=== PATIENT | female | born 1995 | race Caucasian/White ===

== ENCOUNTER 2023-04-28 23:20 | Emergency (ER) | payer OTHER ==
[~2023-04-28] VITALS: Ht 167.6 cm; Wt 69.0 kg
[2023-04-28 23:33] VITALS: BP 126/75; O2SAT 98
[2023-04-29] MEDS ORDERED: IBUPROFEN 600MG TABLET PO ONE (03:30)
[2023-04-29] MEDS ORDERED: IBUP-2029 MT (05:09)
[2023-04-29 07:10] VITALS: PULSE 77; RESP 16; TEMP 98.7
== END 2023-04-29 07:10 | disposition home or self-care (01) ==
LOC: ER 23:31
DX: R51.9 Headache, unspecified (principal); M54.9 Dorsalgia, unspecified; M54.2 Cervicalgia; V79.9XXA Bus occupant (driver) (passenger) injured in unspecified traffic accident, initial encounter; Y93.89 Activity, other specified; Y92.89 Other specified places as the place of occurrence of the external cause; Y99.8 Other external cause status
CPT/HCPCS: 72040; 72070; 72100; 73030; 81025; 99284